=== PATIENT | female | born 1955 | race Two or more races ===

== ENCOUNTER 2020-12-16 06:42 | Day surgery (SDC) | payer OTHER | END 2020-12-16 10:15 | disposition home or self-care (01) | LOC: AMB-ENDOS 06:42 | PROVIDERS: ATTEND Colon & Rectal Surgery | DX: K63.5 Polyp of colon (principal); K64.8 Other hemorrhoids; Z20.822 Contact with and (suspected) exposure to COVID-19 ==

== ENCOUNTER 2021-02-10 07:27 | Day surgery (SDC) | payer OTHER | END 2021-02-10 13:30 | disposition home or self-care (01) | LOC: AMB-ENDOS 07:27 | PROVIDERS: ATTEND Colon & Rectal Surgery | DX: D12.0 Benign neoplasm of cecum (principal); K64.8 Other hemorrhoids; Z20.822 Contact with and (suspected) exposure to COVID-19 ==

== ENCOUNTER 2022-06-01 06:56 | Day surgery (SDC) | payer OTHER | END 2022-06-01 12:55 | disposition home or self-care (01) | LOC: CIR.AMB 06:56 | PROVIDERS: ATTEND Colon & Rectal Surgery | DX: K63.5 Polyp of colon (principal); Z20.822 Contact with and (suspected) exposure to COVID-19 ==

== ENCOUNTER 2022-10-12 10:35 | Inpatient (IN) | payer OTHER ==
[~2022-10-12] VITALS: Ht 167.6 cm; Wt 63.0 kg
[2022-10-12] MEDS ORDERED: HORIZANT300 MG PO (15:23)
[2022-10-12] MEDS ORDERED: FOLIVANE-PLUS1 EACH PO (15:23)
[2022-10-12] MEDS ORDERED: PLAVIX75 MG PO (15:24)
[2022-10-12] MEDS ORDERED: PEPCID AC20 MG PO (15:24)
[2022-10-12] MEDS ORDERED: DIOVAN160 M1 PO (15:24)
[2022-10-12] MEDS ORDERED: CHILDREN'S ASPI81 MG PO (15:24)
[2022-10-12] MEDS ORDERED: CRESTOR40 MG PO (15:25)
[2022-10-12] MEDS ORDERED: CARVEDILOL6.25 MG (15:25)
[2022-10-12] MEDS ORDERED: HYDRODIURIL12.5 MG PO (15:25)
[2022-10-12] MEDS ORDERED: FARXIGA10 MG PO (15:26)
[2022-10-12] MEDS ORDERED: [UNRECOGNIZED DRUG - OTHER] (15:27)
[2022-10-14] MEDS ORDERED: GABAPENTIN300 M2 (08:01)
== END 2022-10-18 08:51 | disposition home or self-care (01) | DRG 331 ==
LOC: O/R 10-14 05:33 → SURG 10-14 05:33
PROVIDERS: ADMIT Colon & Rectal Surgery; ATTEND Colon & Rectal Surgery
PROC: 0DTB4ZZ Resection of Ileum, Percutaneous Endoscopic Approach (ICD-10-PCS; 2022-10-14)
PROC: 07BB4ZZ Excision of Mesenteric Lymphatic, Percutaneous Endoscopic Approach (ICD-10-PCS; 2022-10-14)
PROC: 0DTK4ZZ Resection of Ascending Colon, Percutaneous Endoscopic Approach (ICD-10-PCS; principal; 2022-10-14 11:30)
DX: D12.2 Benign neoplasm of ascending colon (principal)